=== PATIENT | female | born 1995 | race African-American/Black ===

== ENCOUNTER 2021-10-14 11:39 | Emergency (ER) | payer MEDICARE, BC, MEDICAID ==
[~2021-10-14] VITALS: Ht 160 cm; Wt 85.0 kg
[2021-10-14 11:43] VITALS: BP 105/72
[2021-10-14 13:18] LABS: CHLORIDE 107 mEq/L (98-107)
== END 2021-10-14 13:53 | disposition home or self-care (01) ==
LOC: ER 12:24
DX: R07.89 Other chest pain (principal)
CPT/HCPCS: 36415; 71045; 80053; 81025; 84484; 93005; 99285